=== PATIENT | female | born 1940 | race Caucasian/White ===

== ENCOUNTER 2020-05-14 12:47 | Emergency (ER) | payer MEDICARE, SELFPAY ==
--- NOTE | ~2020-05-14 | XR_ITS ---
EXAMINATION: XR chest 1V CLINICAL INFORMATION: Weakness COMPARISON: No prior chest x-ray available. TECHNIQUE: XR chest 1V Tubes and lines: None Lungs and pleura: Both lungs are clear. Heart and mediastinum: The mediastinum is within normal limits.. Bones/soft tissue: Skeletal structures included are normal for patient's age. XR/XR chest 1V IMPRESSION: No radiographic evidence of acute cardiopulmonary disease.
--- NOTE | ~2020-05-14 | CT_ITS ---
EXAMINATION: CTA OF THE HEAD AND NECK CLINICAL INFORMATION: Weakness. History of TIA. COMPARISON: Head CT acquired on the same day on 05/14/2020. TECHNIQUE: Test bolus sequences followed by intravenous administration 70 mL of Omnipaque 350. Helical imaging was performed in the axial plane from the mediastinum to the skull vertex. Delayed postcontrast imaging of the head was also performed. The data was processed at the radiologic technologist mammogram's workstation for generation of MIP sequences. Three-dimensional volume rendered reformatted images were also generated at an offline 3-D workstation. Stenoses are assessed in accordance with NASCET criteria unless otherwise indicated. This CT examination was performed using dose optimization techniques as appropriate, variously including the following: *Automated exposure control *Adjustment of mA and/or kV according to patient size (this includes techniques or standardized protocols for targeted exams where dose is matched to indication/reason for exam; i.e. extremities or head) *Use of iterative reconstruction technique DLP: 1356 mGy-cm. FINDINGS: CTA neck: The imaged aortic arch and origins of the great vessels are normal. The common carotid arteries are widely patent. The carotid bifurcations are patent with mild atherosclerotic wall calcifications in very mild luminal irregularity. The cervical internal carotid arteries are otherwise relatively normal in caliber. The vertebral arteries opacify normally and are of normal caliber. Peripherally enhancing and central low density inferior left thyroid lobe mass at the thoracic inlet measuring 2.2 cm in size. Extensive bony demineralization and multilevel cervical spondylosis noted with facet arthropathy. Severe degenerative changes in the right TMJ. The imaged portions of the lungs are clear. CTA head: The intradural vertebral arteries and basilar artery are normal. There is a moderate stenosis in the P1 segment of the left MACHINE INSTALLER. The internal carotid arteries are of normal caliber. There is a 0.3 cm aneurysm projecting medially from the paraclinoid segment of the left internal carotid artery. There are mild stenoses in the M1 segments of the MCAs. The MINE vascular complexes bilaterally are normal. The venous sinuses opacify normally. CT/CT angio head neck IMPRESSION: Mild atherosclerotic disease at the carotid bifurcations without significant stenosis. Remainder of the cervical vasculature is relatively normal. Moderate stenosis in the P1 segment of the left MACHINE INSTALLER. Mild stenoses in the M1 segments of the MCAs bilaterally. No high-grade stenosis or vessel occlusion intracranially at the level of the [place]. 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 Heterogeneous central low density 2.2 cm left thyroid lobe mass. Imaging findings reported to COBY Snowden at 4:43 PM on 05/14/2020.
--- NOTE | ~2020-05-14 | CT_ITS ---
EXAMINATION: CT HEAD WITHOUT CONTRAST (STROKE PROTOCOL) CLINICAL INFORMATION: Stroke protocol. COMPARISON: None TECHNIQUE: Contiguous axial imaging was performed from the skull base to vertex without intravenous administration of contrast. This CT examination was performed using dose optimization techniques as appropriate, variously including the following: *Automated exposure control *Adjustment of mA and/or kV according to patient size (this includes techniques or standardized protocols for targeted exams where dose is matched to indication/reason for exam; i.e. extremities or head) *Use of iterative reconstruction technique DLP: 593 mGy-cm FINDINGS: There is no intracranial hemorrhage, hematoma, or extra-axial fluid collection. The ventricles are normal in size. There is no hydrocephalus, edema, or mass effect. The arroyo-white matter differentiation appears symmetric. There is no acute infarct or mass lesion. The calvarium appears intact. There is no pneumocephalus or orbital emphysema. The visualized sinuses and middle ears and mastoid air cells show no significant mucosal thickening. There are no air-fluid levels. CT/CT head for stroke IMPRESSION: No acute intracranial pathology.
[2020-05-14 12:53] VITALS: BP 173/72; PULSE 83; RESP 14; TEMP 36.6; O2SAT 98; BMI 26.5
--- NOTE | 2020-05-14 13:14 | ECG_ITS ---
Test Reason : Weakness Blood Pressure : / mmHG Vent. Rate : 073 BPM Atrial Rate : 073 BPM P-R Int : 160 ms QRS Dur : 074 ms QT Int : 362 ms P-R-T Axes : 002 -29 049 degrees QTc Int : 398 ms Normal sinus rhythm Moderate voltage criteria for LVH, may be normal variant Borderline ECG When compared with ECG of 16-FEB-2003 08:12, T wave amplitude has increased in Anterior leads Referred By: Manfred Snowden Electronically Signed By:Emmanuel Macias
[2020-05-14 13:15] VITALS: BP 160/64; PULSE 68
--- NOTE | 2020-05-14 13:18 | ED.WEAKNESS ---
HPI - Weakness General Chief complaint: Weakness Stated complaint: DIZZY LIGHTHEADED Time Seen by Provider: 05/14/20 13:13 Source: patient Mode of arrival: ambulatory Limitations: no limitations History of Present Illness HPI Narrative: 79-year-old female with prior history of TIA, hypothyroidism who presents ambulatory via triage with her daughter with complaint of states he has had component of weakness in the lower legs and sometimes generally for the past couple years urine half ago she had similar symptoms and at that time she had a TIA however did not have the leg weakness. Sometimes she will get weak to the legs and will need to rest and her symptoms were resolved. States these symptoms that she has today are a little different from her TIA in August 2018. States the symptoms are not new for her that have been going on for several years but today called her daughters with the symptoms who brought her to the hospital. Today episode occurred several hours prior to arrival but similar to these episodes she gets frequently. She denies any fall or injury. No headache. States overall generalized weakness no specific area of her body is weak, no chest pain or shortness of breath. No recent illness. Off note per daughter she is very ?anti medication, vaccination ? For states when she was at [facility] was recommended by Neurology there that she started on Plavix however she did not start this. At this time she also was recommended tPA and she declined. Consent for records from [facility] Complaint: generalized weakness Onset (ago): month(s) (On off for months if not over a year) Duration: intermittent Location: generalized Migration: none Severity: moderate Relieving factors: none Exacerbating factors: none Associated symptoms: denies other symptoms Related Data Previous Rx's Medication Instructions Recorded clopidogrel [Plavix] 75 mg PO DAILY #30 tab 05/14/20 nitrofurantoin monohyd/m-cryst 100 mg PO Q12H 7 Days #14 cap 05/14/20 [Macrobid] Allergies Allergy/AdvReac Type Severity Reaction Status Date / Time ibuprofen [IBUPROFEN] Allergy Unknown RASH Verified 05/14/20 12:54 nickel [NICKEL] Allergy Unknown RASH Verified 05/14/20 12:54 Review of Systems Review of Systems: Constitutional: No Weight loss, No Fever, No Chills, No Night Sweats, No Fatigue, No Malaise ENT/Mouth: No Hearing loss, No Ear Pain, No Nasal Congestion, No Sinus Pain, No Hoarseness, No sore throat, No Rhinorrhea, No Swallowing Difficulty Eyes: No Eye Pain, No Swelling, No Redness, No Foreign Body, No Discharge, No Vision Changes Cardiovascular: No Chest Pain, No SOB, No Dyspnea on Exertion, No Orthopnea, No Edema, No Palpitations Respiratory: No Cough, No Sputum, No Wheezing, No Dyspnea Gastrointestinal: No Nausea, No Vomiting, No Diarrhea, No Constipation, No abdominal Pain, No Hematochezia, No Melena Genitourinary: no irregular bleeding, No Dysuria, No Urinary Frequency, No Hematuria, No Urinary Incontinence, No Urgency, No Flank Pain, No Urinary Flow Changes, No Hesitancy Musculoskeletal: No joint pain, No Myalgias, No Joint Swelling Skin: No Skin Lesions, No rash Neuro: + generalized weakness Weakness, No Numbness, No Paresthesias, No Loss of Consciousness, No Dizziness, No Headache Psych: No Social Issues Heme/Lymph: No Bruising, No Bleeding,No Lymphadenopathy Endocrine: No Polyuria, No Polydipsia, No Temperature Intolerance Yes all other systems are reviewed and are negative Neurologic: Reports Abnormal speech present [facility] Past Medical History Medical History (Updated 05/14/20 @ 20:11 by Manfred Snowden NP) Hypothyroidism TIA (transient ischemic attack) Social History Social History Alcohol intake: never Smoking Status: Never smoker Use of substances other than those prescribed or required for medical reasons: No Advance Directives: No Advance Directives Information Provided: Yes Physical Exam Vital Signs: Vital Signs: Last Vital Signs Temp 98.4 F 05/14/20 15:27 Pulse 70 05/14/20 18:05 Resp 16 05/14/20 18:05 BP 177/76 H 05/14/20 18:05 Pulse Ox 98 05/14/20 18:05 Body Mass Index 26.5 Reviewed Const: General: cooperative and healthy appearing; No acute distress or intoxicated appearing Nutritional Appearance: average body habitus Orientation/consciousness: patient oriented x3 HENMT: Head: Yes normal to inspection Ears: hearing grossly normal bilaterally Eyes: General: appearance normal, both eyes and all related structures Visual Aj: normal visual aj by confrontation Neck: Neck: Yes normal visual inspection, Yes no meningeal signs, No positive Brudzinski's sign, No positive Kernig's sign and No tender Thyroid: Thyroid normal Chest: Chest palpation & inspection: normal inspection of the chest Resp: Effort & Inspection: normal respiratory effort Auscultation: clear to auscultation bilaterally Cardio: Jugular venous distension: no JVD Rhythm: regular rhythm Heart sounds: S1 normal heart sound present and S2 normal heart sound present GI: Inspection: Yes normal to inspection Percussion: Yes normal to percussion Auscultation: normal bowel sounds : General: Yes no CVA tenderness Back/Spine/Pelvis: Back: no CVA tenderness Skin: General skin exam: no rashes or lesions noted Neuro: General: patient oriented x3, gait normal, tone normal, moves all extremities, Normal light touch and pain sensation, no meningeal signs, no focal motor deficits, CN's II-XI intact bilaterally, normal sensation to monofilament and deep tendon reflexes 2+ bilaterally Cognition (Neuro): normal cognition Speech: Abnormal speech present Gait exam (Neuro): Normal gait present Motor exam (neuro): 5/5 motor strength present throughout Sensory Exam: Normal double simultaneous stimulation for sensation Coordination: aogirp-ev-hckv test normal Comatose Patient: corneal reflex present Extrem: General: Yes normal to inspection NIH Stroke Scale Internal: Initial- Upon Arrival Level of Consciousness: Alert Level of Consciousness Questions: Answers both questions correctly Level of Consciousness Commands: Performs both tasks correctly Best Gaze: Normal Visual: No visual loss Facial Palsy: Normal Motor Arm (Right): No drift Motor Arm (Left): No drift Motor Leg (Right): No drift Motor Leg (Left): No drift Limb Ataxia: Absent Sensory: Normal Best Language: No aphasia Dysarthia: Normal Extinction and Inattention: No abnormality Score: 0 Course Course Course Narrative: Per daughter Sharyn as well as her sister patient is somewhat resistant to most treated plans she is very ?anti? medicine. Findings of labs overall stable UA with positive nitrate though asymptomatic given her generalized weakness will go ahead and treat this no previous culture. CT of the head neck reviewed findings consistent with prior findings and the need for follow up closely with Neurology. She was given prescription of Plavix to start on prior evaluation at [facility] however she did not pick this as she did not want to take it however this time she is agreeable and will go ahead and per provider with prescription. Case discussed with attending at this time feels symptoms more chronic and will need outpatient follow-up. Patient out of bed ambulatory status with gait. She is alert and oriented x3. She ate dinner in no acute distress. She remains without any focal neurological findings. Reevaluation(s) Reevaluation #1: Symptoms seem more generalized without acute focal findings and chronicity more chronic appearing question TIA/arrhythmia/peripheral/vertigo/ orthostasis. Will need labs head CT and will consider head neck CTA. Given her chronicity of symptoms she is not a tPA candidate this time. 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 Lab Data Attestation: I reviewed the patient's lab results. Result diagrams: 05/14/20 13:42 05/14/20 13:42 Labs: Lab Results 05/14/20 05/14/20 05/14/20 Range/Units 13:42 13:42 13:42 WBC 6.7 (4.8-10.8) X10*3/uL RBC 4.41 (4.20-5.50) X10*6/uL Hgb 12.3 (12.0-16.0) g/dl Hct 38.3 (37-47) % MCV 86.8 (80-98) fL MCH 27.9 (27.0-33.0) pg MCHC 32.1 (31.0-35.0) g/dl RDW 14.2 (11.0-16.0) % Plt Count 165 (160-400) X10*3/uL MPV 10.5 (9.4-12.3) fL Immature Gran % (Auto) 0.1 (0.0-0.4) % Neut % (Auto) 53.2 (45-73) % Lymph % (Auto) 39.8 (20-40) % Bates % (Auto) 6.4 (2-11) % Eos % (Auto) 0.1 (0-4) % Baso % (Auto) 0.4 (0-2) % Lymph # (Auto) 2.7 (1.2-4.9) X10*3/uL Bates # (Auto) 0.4 (0.1-1.2) X10*3/uL Eos # (Auto) 0.0 (0.0-0.4) X10*3/uL Baso # (Auto) 0.0 (0.0-0.2) X10*3/uL Abs Immat Gran (auto) 0.01 (0.00-0.03) X10*3/uL Absolute Neuts (auto) 3.6 (2.0-8.3) X10*3/uL Absolute Nucleated RBC 0.000 (0.0-0.012) X10*3/uL Nucleated RBC % (auto) 0.0 (0.0-0.2) /100WBC PT 12.2 (10.8-13.0) SEC INR 1.0 (0.9-1.1) APTT 33.4 (24.1-38.0) SEC Sodium 135 (135-145) mmol/L Potassium 5.6 H (3.3-5.1) mmol/L Chloride 100 (96-108) mmol/L Carbon Dioxide 29 (22-29) mmol/L Anion Gap 12 (12-20) BUN 22 H (9-16) mg/dL Creatinine 0.75 (0.5-1.4) mg/dL Estim Creat Clear Calc 52.3 Estimated GFR > 60 Random Glucose 106 (60-115) mg/dL Calcium 8.9 (8.4-10.2) mg/dL Magnesium 2.4 (1.6-2.6) mg/dL Total Bilirubin 0.5 (0.0-1.0) mg/dL AST 24 (5-31) U/L ALT 23 (0-31) U/L Alkaline Phosphatase 68 (39-117) U/L Troponin I High Sens (<3.5-17.0) ng/L Total Protein 6.3 L (6.5-8.0) g/dL Albumin 4.1 (3.5-5.0) g/dL Urine Color Urine Appearance Urine pH (5.0-8.0) Ur Specific [place] (1.005-1.025) Urine Protein (NEG-TRACE) MG/DL Urine Glucose (UA) (NEG) MG/DL Urine Ketones (NEG) MG/DL Urine Blood (NEG) Urine Nitrite (NEG) Ur Leukocyte Esterase (NEG) Urine RBC (0) /HPF Urine WBC (0-4) /HPF Ur Squamous Epith Cells /LPF Urine Bacteria /LPF COVID-19 ([facility]) (Negative) COVID-19 Clin Com 05/14/20 05/14/20 05/14/20 Range/Units 13:42 15:30 15:31 WBC (4.8-10.8) X10*3/uL RBC (4.20-5.50) X10*6/uL Hgb (12.0-16.0) g/dl Hct (37-47) % MCV (80-98) fL MCH (27.0-33.0) pg MCHC (31.0-35.0) g/dl RDW (11.0-16.0) % Plt Count (160-400) X10*3/uL MPV (9.4-12.3) fL Immature Gran % (Auto) (0.0-0.4) % Neut % (Auto) (45-73) % Lymph % (Auto) (20-40) % Bates % (Auto) (2-11) % Eos % (Auto) (0-4) % Baso % (Auto) (0-2) % Lymph # (Auto) (1.2-4.9) X10*3/uL [place] # (Auto) (0.1-1.2) X10*3/uL Eos # (Auto) (0.0-0.4) X10*3/uL Baso # (Auto) (0.0-0.2) X10*3/uL Abs Immat Gran (auto) (0.00-0.03) X10*3/uL Absolute Neuts (auto) (2.0-8.3) X10*3/uL Absolute Nucleated RBC (0.0-0.012) X10*3/uL Nucleated RBC % (auto) (0.0-0.2) /100WBC PT (10.8-13.0) SEC INR (0.9-1.1) APTT (24.1-38.0) SEC Sodium (135-145) mmol/L Potassium (3.3-5.1) mmol/L Chloride (96-108) mmol/L Carbon Dioxide (22-29) mmol/L Anion Gap (12-20) BUN (9-16) mg/dL Creatinine (0.5-1.4) mg/dL Estim Creat Clear Calc Estimated GFR Random Glucose (60-115) mg/dL Calcium (8.4-10.2) mg/dL Magnesium (1.6-2.6) mg/dL Total Bilirubin (0.0-1.0) mg/dL AST (5-31) U/L ALT (0-31) U/L Alkaline Phosphatase (39-117) U/L Troponin I High Sens < 3.5 (<3.5-17.0) ng/L Total Protein (6.5-8.0) g/dL Albumin (3.5-5.0) g/dL Urine Color YELLOW Urine Appearance CLEAR Urine pH 6.0 (5.0-8.0) Ur Specific [place] 1.010 (1.005-1.025) Urine Protein NEG (NEG-TRACE) MG/DL Urine Glucose (UA) NEG (NEG) MG/DL Urine Ketones NEG (NEG) MG/DL Urine Blood NEG (NEG) Urine Nitrite POS H (NEG) Ur Leukocyte Esterase NEG (NEG) Urine RBC 0 (0) /HPF Urine WBC 0 (0-4) /HPF Ur Squamous Epith Cells NONE /LPF Urine Bacteria 2+ /LPF COVID-19 ([facility]) Negative (Negative) COVID-19 Clin Com See Note Imaging Data CT scan - head: Radiologist's impression: [address] [id number] Scan ReportSigned Patient: Gabi HanMR#: [id number]: 1941Acct:[id number]/Sex: 79 / FADM Date: 05/14/20Loc: Omari Quinonez: Ordering Physician: Manfred Snowden [employer] Date of Service: 05/14/20 Procedure(s): CT head for stroke Accession Number(s): [id number] cc: Manfred Snowden [employer]~ EXAMINATION: CT HEAD WITHOUT CONTRAST (STROKE PROTOCOL) CLINICAL INFORMATION: Stroke protocol. COMPARISON: None TECHNIQUE: Contiguous axial imaging was performed from the skull base to vertex without intravenous administration of contrast. This CT examination was performed using dose optimization techniques as appropriate, variously including the following: *Automated exposure control *Adjustment of mA and/or kV according to patient size (this includes techniques or standardized protocols for targeted exams where dose is matched to indication/reason for exam; i.e. extremities or head) *Use of iterative reconstruction technique DLP: 593 mGy-cm FINDINGS: There is no intracranial hemorrhage, hematoma, or extra-axial fluid collection. The ventricles are normal in size. There is no hydrocephalus, edema, or mass effect. The arroyo-white matter differentiation appears symmetric. There is no acute infarct or mass lesion. The calvarium appears intact. There is no pneumocephalus or orbital emphysema. The visualized sinuses and middle ears and mastoid air cells show no significant mucosal thickening. There are no air-fluid levels. CT/CT head for stroke IMPRESSION: No acute intracranial pathology. Dictated By:LIZA DONALDSON MDSigned By:<Electronically signed by LIZA DONALDSON MD in OV>05/14/20 1340 DD/ 1313TD/TT: Dna Analyst: ZAIDA Head/neck CTA: Radiologist's impression: [address] [id number] Scan ReportSigned Patient: Gabi HanMR#: [id number]: 1940cct:[id number]/Sex: 79 / FADM Date: 05/14/20Loc: [email or web address].EDAttending Dr: Ordering Physician: Manfred Snowden NP Date of Service: 05/14/20 Procedure(s): CT angio head neck Accession Number(s): [id number] cc: Manfred Snowden [employer]~ EXAMINATION: CTA OF THE HEAD AND NECK CLINICAL INFORMATION: Weakness. History of TIA. COMPARISON: Head CT acquired on the same day on 05/14/2020. TECHNIQUE: Test bolus sequences followed by intravenous administration 70 mL of Omnipaque 350. Helical imaging was performed in the axial plane from the mediastinum to the skull vertex. Delayed postcontrast imaging of the head was also performed. The data was processed at the cardiovascular radiologic technologist's workstation for generation of MIP sequences. Three-dimensional volume rendered reformatted images were also generated at an offline 3-D workstation. Stenoses are assessed in accordance with NASCET criteria unless otherwise indicated. This CT examination was performed using dose optimization techniques as appropriate, variously including the following: *Automated exposure control *Adjustment of mA and/or kV according to patient size (this includes techniques or standardized protocols for targeted exams where dose is matched to indication/reason for exam; i.e. extremities or head) *Use of iterative reconstruction technique DLP: 1356 mGy-cm. FINDINGS: CTA neck: The imaged aortic arch and origins of the great vessels are normal. The common carotid arteries are widely patent. The carotid bifurcations are patent with mild atherosclerotic wall calcifications in very mild luminal irregularity. The cervical internal carotid arteries are otherwise relatively normal in caliber. The vertebral arteries opacify normally and are of normal caliber. Peripherally enhancing and central low density inferior left thyroid lobe mass at the thoracic inlet measuring 2.2 cm in size. Extensive bony demineralization and multilevel cervical spondylosis noted with facet arthropathy. Severe degenerative changes in the right TMJ. The imaged portions of the lungs are clear. CTA head: The intradural vertebral arteries and basilar artery are normal. There is a moderate stenosis in the P1 segment of the left PATENT LEATHER SORTER. The internal carotid arteries are of normal caliber. There is a 0.3 cm aneurysm projecting medially from the paraclinoid segment of the left internal carotid artery. There are mild stenoses in the M1 segments of the MCAs. The MINE vascular complexes bilaterally are normal. The venous sinuses opacify normally. CT/CT angio head neck IMPRESSION: Mild atherosclerotic disease at the carotid bifurcations without significant stenosis. Remainder of the cervical vasculature is relatively normal. Moderate stenosis in the P1 segment of the left PATENT LEATHER SORTER. Mild stenoses in the M1 segments of the MCAs bilaterally. No high-grade stenosis or vessel occlusion intracranially at the level of the [place]. 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 Heterogeneous central low density 2.2 cm left thyroid lobe mass. Imaging findings reported to COBY Snowden at 4:43 PM on 05/14/2020. Dictated By:LIZA BOJORQUEZ MDSigned By:<Electronically signed by LIZA BOJORQUEZ MD in OV>05/14/20 1644 DD/ 1409TD/TT: Dna Analyst: JUNIOR Chest x-ray: Radiologist's impression: Gabi Han 79 F [address] [id number] ReportSigned Patient: Gabi HanMR#: [id number]: 1940cct:[id number]/Sex: 79 / FADM Date: 05/14/20Loc: EDAttamrco Dr: Ordering Physician: Manfred Snowden NP Date of Service: 05/14/20 Procedure(s): XR chest 1V Accession Number(s): [id number] cc: Manfred Snowden [employer]~ EXAMINATION: XR chest 1V CLINICAL INFORMATION: Weakness COMPARISON: No prior chest x-ray available. TECHNIQUE: XR chest 1V Tubes and lines: None Lungs and pleura: Both lungs are clear. Heart and mediastinum: The mediastinum is within normal limits.. Bones/soft tissue: Skeletal structures included are normal for patient's age. XR/XR chest 1V IMPRESSION: No radiographic evidence of acute cardiopulmonary disease. Dictated By:IMANI SHIRLEY MDSigned By:<Electronically signed by IMANI SHIRLEY MD in OV>05/14/20 1537 DD/ 1511TD/TT: Dna Analyst: MAYA ECG Data Interpretation: Normal sinus rhythm Rate 73 Moderate voltage criteria for LVH, may be normal variant Borderline ECG When compared with ECG of 16-FEB-2003 08:12, Compare to [facility] no significant change found Discharge Plan Discharge Clinical Impression: Generalized weakness, Urinary tract infection Patient Disposition: Home, Self-Care Instructions: Weakness (ED), Urinary Tract Infection in Older Adults (ED) Additional Instructions: Please follow up with her primary care doctor as well as neurologist Dr. Marinelli as discussed Take medications as prescribed Return if any concerns or worsening symptoms Thank you Prescriptions: New nitrofurantoin monohyd/m-cryst [Macrobid] 100 mg capsule 100 mg PO Q12H 7 Days Qty: 14 RF: 0 clopidogrel [Plavix] 75 mg tablet 75 mg PO DAILY Qty: 30 RF: 0 Referrals: Hammad Bean MD [Primary Care Provider] - 2 days Ye Marinelli MD [Physician] - 1 week Interventions: ED Discharge Assessment Last Done: 05/14/20 18:33 Discharge Date/Time: 05/14/20 18:34
[2020-05-14 13:50] LABS: Basophils Percent Auto 0.4 % (0-2); Eosinophils Percent Auto 0.1 % (0-4); Hematocrit 38.3 % (37-47); Hemoglobin 12.3 g/dl (12.0-16.0); Imm Gran Abs Auto 0.01 X10*3/uL (0.00-0.03); Imm Gran Pct Auto 0.1 % (0.0-0.4); Lymphocytes Absolute Auto 2.7 X10*3/uL (1.2-4.9); Lymphocytes Percent Auto 39.8 % (20-40); MANUAL DIFF FLAG NO; Mean Corpuscular HGB Conc 32.1 g/dl (31.0-35.0); Mean Corpuscular Hemoglobin 27.9 pg (27.0-33.0); Mean Corpuscular Volume 86.8 fL (80-98); Mean Platelet Volume 10.5 fL (9.4-12.3); Monocytes Absolute Auto 0.4 X10*3/uL (0.1-1.2); Monocytes Percent Auto 6.4 % (2-11); Neutrophils Absolute Auto 3.6 X10*3/uL (2.0-8.3); Neutrophils Percent Auto 53.2 % (45-73); Platelet Count 165 X10*3/uL (160-400); Red Blood Count 4.41 X10*6/uL (4.20-5.50); Red Cell Distribution Width 14.2 % (11.0-16.0); White Blood Count 6.7 X10*3/uL (4.8-10.8)
[2020-05-14] MEDS: 0.9 % Sodium Chloride 500 ML IV (14:15)
[2020-05-14 14:20] LABS: Alanine Aminotransferase 23 U/L (0-31); Albumin Level 4.1 g/dL (3.5-5.0); Alkaline Phosphatase 68 U/L (39-117); Anion Gap 12 (12-20); Aspartate Amino Transferase 24 U/L (5-31); Bilirubin Total 0.5 mg/dL (0.0-1.0); Blood Urea Nitrogen 22 mg/dL (9-16); Calcium 8.9 mg/dL (8.4-10.2); Carbon Dioxide 29 mmol/L (22-29); Chloride 100 mmol/L (96-108); Creatinine Clr Calc Pharmacy 52.3; Estimated Glomerular Filt Rate > 60; Glucose Random 106 mg/dL (60-115); Magnesium 2.4 mg/dL (1.6-2.6); Potassium 5.6 mmol/L (3.3-5.1); Sodium 135 mmol/L (135-145); Total Protein 6.3 g/dL (6.5-8.0)
[2020-05-14 14:22] VITALS: BP 165/69; BP 168/78; PULSE 75; PULSE 80
[2020-05-14 14:24] LABS: Troponin-I High Sensitivity < 3.5 ng/L (<3.5-17.0)
[2020-05-14 14:35] LABS: Prothrombin Time 12.2 SEC (10.8-13.0)
[2020-05-14 14:38] LABS: Partial Thromboplastin Time 33.4 SEC (24.1-38.0)
[2020-05-14 15:27] VITALS: BP 173/68; PULSE 63; RESP 13; TEMP 36.9; O2SAT 100
[2020-05-14 15:41] LABS: Glucose Urine UA NEG (NEG); Leukocyte Esterase Urine NEG (NEG); Nitrite Urine POS (NEG); UACC Culture Trigger YES; Urine Blood NEG (NEG); Urine Ketones NEG (NEG); Urine Protein NEG (NEG-TRACE)
[2020-05-14 15:45] LABS: Appearance Urine CLEAR; Color Urine YELLOW
[2020-05-14 15:50] LABS: Bacteria Urine 2+ /LPF; RBC Urine 0 /HPF (0); UACC CULT YES; WBC Urine 0 /HPF (0-4)
[2020-05-14 15:58] LABS: COVID-19 Test Negative (Negative)
[2020-05-14 17:17] VITALS: BP 184/73; PULSE 58; RESP 18; O2SAT 97
[2020-05-14 18:05] VITALS: BP 177/76; PULSE 70; RESP 16; O2SAT 98
== END 2020-05-14 18:34 | disposition home or self-care (01) ==
PROVIDERS: Nurse Practitioner Primary Care; Emergency Provider Internal Medicine; PCP Internal Medicine
DX: N39.0 Urinary tract infection, site not specified (principal); R42 Dizziness and giddiness; R53.1 Weakness; Z20.822 Contact with and (suspected) exposure to COVID-19; Z79.899 Other long term (current) drug therapy; Z86.73 Personal history of transient ischemic attack (TIA), and cerebral infarction without residual deficits
CPT/HCPCS: 36415; 70450; 70496; 70498; 71045; 80053; 81001; 83735; 84484; 85025; 85610; 85730; 87086; 87635; 93005; 96360; 99284; Q9967

== ENCOUNTER 2020-06-29 09:21 | Outpatient (REF) | payer MEDICARE, SELFPAY ==
--- NOTE | ~2020-06-29 | MR_ITS ---
EXAMINATION: MR CERVICAL SPINE WITHOUT CONTRAST CLINICAL INFORMATION: Cervical spondylotic cord compression. COMPARISON: None available. TECHNIQUE: MRI of the cervical spine was performed using routine sequences without contrast. FINDINGS: The cervical vertebral bodies maintain normal heights. There is mild anterolisthesis of C3 on C4. Multilevel intervertebral disc height loss is noted most advanced at C5-C6 and C6-C7. Mild endplate edema seen at C5-C6 and C6-C7. Edema reflecting facet arthropathy is seen within the left-sided C5 facet. The cervical cord signal appears normal. The imaged portions of the extraspinal soft tissues and intracranial contents appear normal. SPINAL LEVELS: C2-C3: No posterior disc abnormality. Left facet ankylosis. No spinal canal or neural foraminal stenosis. C3-C4: Mild anterolisthesis related to advanced facet arthropathy. Left-sided facet ankylosis. No spinal canal or neural foraminal stenosis. C4-C5: Disc bulging with severe left and mild to moderate right facet arthropathy. No spinal canal stenosis. No significant neural foraminal stenosis. C5-C6: Disc osteophyte complex with left more than right uncovertebral hypertrophy and facet arthropathy resulting in severe left and moderate right neural foraminal stenosis. C6-C7: Disc osteophyte complex causing mild spinal canal stenosis. Uncovertebral hypertrophy results in moderate left and [id number] right neural foraminal stenosis. C7-T1: Disc bulging with left uncovertebral hypertrophy causing mild to moderate left neural foraminal stenosis. No spinal canal stenosis. MR/MR cervical spine wo con IMPRESSION: Multilevel degenerative spondylotic changes without significant narrowing of the spinal canal. Neural foraminal stenosis appears severe on the left and moderate on the right at C5-C6 and less advanced at other levels.
== END 2020-06-29 09:22 | disposition home or self-care (01) ==
LOC: HO.MRI 09:21
PROVIDERS: Visit Provider Psychiatry & Neurology Neurology
DX: M47.12 Other spondylosis with myelopathy, cervical region (principal)
CPT/HCPCS: 72141